=== PATIENT | female | born 1975 | race Caucasian/White ===

== ENCOUNTER 2021-05-05 16:50 | Emergency (ER) | payer MEDICAID ==
[~2021-05-05] VITALS: Ht 157.5 cm; Wt 75.0 kg
[2021-05-05 17:21] VITALS: BP 134/82
[2021-05-05] MEDS ORDERED: TRAM50TA3 MT (17:30)
== END 2021-05-05 17:50 | disposition home or self-care (01) ==
LOC: ER 16:50
DX: M54.50 Low back pain, unspecified (principal); Z98.890 Other specified postprocedural states
CPT/HCPCS: 99283